=== PATIENT | female | born 1980 | race Caucasian/White ===

== ENCOUNTER 2017-03-08 10:18 | Emergency (ER) | payer OTHER, SELFPAY ==
[2017-03-08 10:45] VITALS: BP 151/103; PULSE 76; RESP 18; O2SAT 94; BMI 34.0
[2017-03-08 11:11] LABS: Microscopic, Urine URINE MICROSCOPIC (MICROSCOPIC)
[2017-03-08 11:13] LABS: Appearance,Urine CLEAR (Clear); Bilirubin,Urine Negative (Negative); Blood, Urine 1+ (Negative); Color,Urine YELLOW (Yellow); Glucose,Urine (UA) Negative (Negative); Ketones,Urine Negative (Negative); Leukocyte Esterase,Urine Negative (Negative); Nitrate,Urine Negative (Negative); Protein,Urine Negative (Negative); Specific Gravity, Urine <= 1.005 (1.005-1.030); Urobilinogen,Urine 0.2 EU/dl (0.2)
[2017-03-08 11:26] LABS: Urine Pregnancy, HCG Qual. Negative (Negative)
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
[2017-03-08 11:40] LABS: Bacteria,Urine Trace /lpf
[2017-03-08 11:59] VITALS: BP 133/82; PULSE 76; RESP 14; O2SAT 97
[2017-03-08 12:37] VITALS: BP 124/83; PULSE 71; RESP 16; O2SAT 97
[2017-03-08 13:10] VITALS: BP 129/83; PULSE 65; O2SAT 96
== END 2017-03-08 13:12 | disposition home or self-care (01) ==
PROVIDERS: Emergency Provider Emergency Medicine; PCP Family Medicine
DX: S16.1XXA Strain of muscle, fascia and tendon at neck level, initial encounter (principal); S29.019A Strain of muscle and tendon of unspecified wall of thorax, initial encounter; S39.012A Strain of muscle, fascia and tendon of lower back, initial encounter; V43.52XA Car driver injured in collision with other type car in traffic accident, initial encounter; Y92.410 Unspecified street and highway as the place of occurrence of the external cause; F17.210 Nicotine dependence, cigarettes, uncomplicated; J44.9 Chronic obstructive pulmonary disease, unspecified; F41.9 Anxiety disorder, unspecified
CPT/HCPCS: 72040; 72070; 72100; 81001; 81025; 96372; 99283

== ENCOUNTER 2018-02-10 17:25 | Observation (INO) ==
--- NOTE | 2018-02-10 17:52 | Emergency Department Note ---
ED Disposition Clinical Impression: Migraine Condition on Discharge: Fair Referrals: Provider,Referral, [Primary Care Provider] - - Critical Care Critical Care Time: No Attestation: On 02/10/18, the high probability of a clinically significant, sudden or life threatening deterioration of the following system(s) required my full and direct attention, intervention and personal management. The time I documented below is in addition to time spent performing reported procedures but includes the following listed in this critical care notation. Medical Decision Making - Nadeem Inquiry Pt receiving controlled substance: No Nadeem was queried for this patient: No Vital Signs: 02/10/18 17:26 Temperature 99.0 F Temperature Source Oral Pulse Rate [Right Brachial] 77 Respiratory Rate 24 Blood Pressure [Right Arm] 150/98 H Blood Pressure Mean [Right Arm] 115 Blood Pressure Source [Right Arm] Automatic Cuff Blood Pressure Position [Right Arm] Sitting 02 Sat by Pulse Oximetry 92 L Oxygen Delivery Method Room Air Orders (Tests/Meds): ORDERS Category Date Time Status XR chest 2V Stat Exams 02/10/18 17:30 Ordered B-Type Natriuretic Peptide Stat Lab 02/10/18 17:30 Ordered Basic Metabolic Panel Stat Lab 02/10/18 17:30 Ordered Complete Blood Count Auto Diff Stat Lab 02/10/18 17:30 Ordered D-Dimer Stat Lab 02/10/18 17:30 Ordered Lactic Acid Stat Lab 02/10/18 17:30 Ordered Troponin I Stat Lab 02/10/18 17:30 Ordered Blood Culture Stat Micro 02/10/18 17:30 Ordered Headache HPI - General Chief Complaint: Chest Pain Stated Complaint: chest pain,diff swallowing Time Seen by Provider: 02/10/18 17:45 Mode of Arrival: Ambulatory Limitations: No Limitations Description of Symptoms (Recalled from ER Triage Doc. by RN): chest pain/indigestion that began while at work last night; states she has difficulty swallowing as well. recently had gb removed; no other history of gi issues. copd positive. wheezing noted bilaterally. prod cough. - History of Present Illness HPI Narrative: 37 years old white female with history of migraine and meningitis. Her last meningitis episode was in 2009. 3 AM this morning she developed bilateral frontal throbbing pain that is worse with changing position from laying to sitting and sitting to standing. She complains of mild cervical stiffness with no rigidity no fever no chills no nausea no vomiting. He denies having photophobia or phonophobia. Denies having chest pain or palpitation or shortness of breath.. Complaint: headache Onset (ago): hour(s) Time: 03:00 Onset description: sudden Location: frontal Severity: moderate Severity scale (1-10): 8 Quality: throbbing Relieving factors: rest Context: occurred at rest Associated symptoms: neck stiffness - Related Data Home Medications Medication Instructions Recorded Confirmed Albuterol Sulfate [Albuterol HFA 108 mg PO QID 03/08/17 11/01/17 Inhaler] Budesonide/Formoterol Fumarate 1 inh PO DAILY 03/08/17 11/01/17 [Symbicort 160-4.5 Mcg Inhaler] Escitalopram Oxalate 5 mg PO DAILY 03/08/17 11/01/17 Ipratropium/Albuterol Sulfate 3 ml INHALATION QID 03/08/17 11/01/17 [Albut-Ipratropium 2.5mg-0.5mg/3 ml] Previous Rx's Medication Instructions Recorded Cyclobenzaprine HCl [Flexeril 10mg 10 mg PO TIDP PRN #10 tab 03/08/17 tablet] Ibuprofen [Ibuprofen 800mg Tab] 800 mg PO Q8HP PRN #15 tab 03/08/17 Allergies Allergy/AdvReac Type Severity Reaction Status Date / Time tramadol [TRAMADOL] Allergy Intermediate WELPS Verified 03/08/17 10:53 [facility] History - Hepatitis A Screen Drug use history?: No High risk sexual behaviors?: No History of sexually transmitted infection?: No Currently employed?: No Childcare worker?: No Do you have indoor plumbing?: Yes Do you have electricity?: Yes Attestation statement:: This patient has been screened for Hepatitis A risk factors. I have reviewed the patient's past medical history: Yes Medical History: Reports:: Cancer (LUNG) Denies:: MRSA Amputation: No Fractures: No - Social History Educational Level: Completed High School Smoking Status: Current every day smoker Tobacco Type: cigarettes Alcohol Intake: never - Psychiatric History Expresses thoughts of harming self/others: None Suicide Plan Description: No Plan ROS Obtained: Yes All systems reviewed & no additional complaints Physical Exam - General General appearance: alert, in no apparent distress - Head Head exam: atraumatic, normocephalic, normal inspection - Eye Eye exam: Present: normal appearance, PERRL, EOMI. Absent: scleral icterus, nystagmus - ENT ENT exam: Present: normal exam, normal oropharynx, mucous membranes moist, TM's normal bilaterally, normal external ear exam - Neck Neck exam: Present: normal inspection, full ROM, trachea midline, other (No limitation of range of motion no stiffness or rigidity.). Absent: tenderness, meningismus, lymphadenopathy - Chest Chest inspection: Present: normal inspection, symmetric chest wall rise. Absent: tenderness - Respiratory Respiratory exam: Present: normal lung sounds bilaterally. Absent: respiratory distress - Cardiovascular Cardiovascular exam: Present: regular rate, normal rhythm, normal heart sounds. Absent: JVD - Abdominal Exam Abdominal exam: Present: soft, normal bowel sounds. Absent: distention, tenderness, guarding, rebound, rigidity - External exam: Present: normal external exam - Extremities Exam Extremities exam: Present: normal inspection, full ROM, normal capillary refill. Absent: tenderness, pedal edema, calf tenderness - Back Exam Back exam: Present: normal inspection. Absent: tenderness, CVA tenderness (R), CVA tenderness (L), paraspinal tenderness, vertebral tenderness - Neurological Exam Neurological exam: Present: alert, oriented X3, CN II-XII intact, motor sensory deficit - Psychiatric Psychiatric exam: Present: normal affect, normal mood - Skin Skin exam: Present: warm, dry, intact, normal color - Lymphatic Lymphatic Findings: no adenopathy
[2018-02-10 17:57] LABS: Basophils # 0.1 K/mm3 (0-0.2); Basophils % 0.4 % (0.1-2.0); Eosinophils # 0.1 K/mm3 (0.0-0.4); Eosinophils % 0.6 % (0.1-12.0); Hematocrit 51.7 % (37.0-47.0); Hemoglobin 17.3 g/dL (12.2-16.2); Lymphocytes # 2.8 K/mm3 (0.7-4.5); Lymphocytes % 20.6 % (10-50); Mean Corpuscular HGB Conc 33.5 g/dL (31.8-35.4); Mean Corpuscular Hemoglobin 32.2 pg (27.0-31.2); Mean Platelet Volume 7.8 fl (7.4-10.4); Monocytes # 0.9 K/mm3 (0.1-1.0); Monocytes % 6.9 % (1.7-9.3); Neutrophils # 9.7 K/mm3 (1.8-7.8); Neutrophils % 71.4 % (37.0-80.0); Platelet Count 331 K/mm3 (142-424); Red Blood Count 5.38 M/mm3 (4.20-5.40); Red Cell Distribution Width 12.4 % (11.5-17.5); White Blood Count 13.6 K/mm3 (4.8-10.8)
--- NOTE | 2018-02-10 18:02 | Emergency Department Note ---
ED Disposition Clinical Impression: Dysphagia, COPD exacerbation, Diverticulosis, Hypokalemia, Leucocytosis, Pneumonitis, Adrenal adenoma, Fatty liver Clinical Impression: (Ruled Out): Migraine Disposition: Still a Patient Condition on Discharge: Fair Referrals: Provider,Referral, [Referring] - - Critical Care Critical Care Time: No Attestation: On 02/10/18, the high probability of a clinically significant, sudden or life threatening deterioration of the following system(s) required my full and direct attention, intervention and personal management. The time I documented below is in addition to time spent performing reported procedures but includes the following listed in this critical care notation. Medical Decision Making - Nadeem Inquiry Pt receiving controlled substance: No Nadeem was queried for this patient: No Vital Signs: 02/10/18 17:26 02/10/18 17:45 02/10/18 17:55 Temperature 99.0 F Temperature Source Oral Pulse Rate 94 H 88 Pulse Rate [Right Brachial] 77 Respiratory Rate 24 Blood Pressure [Right Arm] 150/98 H Blood Pressure Mean [Right Arm] 115 Blood Pressure Source [Right Arm] Automatic Cuff Blood Pressure Position [Right Arm] Sitting 02 Sat by Pulse Oximetry 92 L Oxygen Delivery Method Room Air - Lab Data Lab Results 02/10/18 17:37: WBC 13.6 H, RBC 5.38, Hgb 17.3 H, Hct 51.7 H, MCV 96.0, MCH 32.2 H, MCHC 33.5, RDW 12.4, Plt Count 331, MPV 7.8, Neut % (Auto) 71.4, Lymph % (Auto) 20.6, [place] % (Auto) 6.9, Eos % (Auto) 0.6, Baso % (Auto) 0.4, Neut # (Auto) 9.7 H, Lymph # (Auto) 2.8, [place] # (Auto) 0.9, Eos # (Auto) 0.1, Baso # (Auto) 0.1 02/10/18 17:37: D-Dimer 159 02/10/18 17:37: Sodium 138, Potassium 3.1 L, Chloride 99, Carbon Dioxide 27, Anion Gap 15.1 H, BUN 8, Creatinine 0.70, Estimated Creat Clear 143, Estimated GFR 93, Est GFR ( Amer) 113, Glucose 113 H, Calcium 8.6, Troponin I < 0 .02 02/10/18 17:37: Lactate 0.7 02/10/18 17:37: B-Natriuretic Peptide 42 02/10/18 17:37: Serum HCG, Qual Negative Result diagrams: 02/10/18 17:37 02/10/18 17:37 Orders (Tests/Meds): ED MEDICATIONS Generic Name Dose Route Start Last Admin Trade Name Gopal PRN Reason Stop Dose Admin Albuterol/Ipratropium 3 ml 02/10/18 18:00 Duoneb 3ml Neb IH 03/12/18 17:59 Q1H LEELEE Sodium Chloride 1,000 mls @ 999 mls/hr 02/10/18 18:00 Sod Chlor 0.9% 1000ml Bag IV 02/10/18 19:00 .Q1H1M LEELEE Pantoprazole Sodium 80 mg/ 100 mls @ 10 mls/hr 02/10/18 18:30 Sodium Chloride IV 02/13/18 18:29 .Q10H LEELEE Pantoprazole Sodium 40 mg 02/10/18 21:00 Protonix 40mg Vial IV 03/12/18 20:59 HS LEELEE Discontinued Medications Generic Name Dose Route Start Last Admin Trade Name Paulq PRN Reason Stop Dose Admin Albuterol/Ipratropium 3 ml 02/10/18 17:52 02/10/18 17:45 Duoneb 3ml Neb IH 02/10/18 17:53 3 ml ONCE ONE Administration Diatrizoate Meglum/Diatrizoate Sod 30 ml 02/10/18 17:56 02/10/18 19:01 Gastrografin 66%-10% 30ml PO 02/10/18 17:57 30 ml ONCE ONE Administration Famotidine 20 mg 02/10/18 17:56 02/10/18 19:02 Pepcid 20mg/2ml Vial IV 02/10/18 17:57 20 mg ONCE ONE Administration Methylprednisolone Sodium Succinate 125 mg 02/10/18 17:56 02/10/18 19:02 Solu-Medrol 125mg/2ml Vial IV 02/10/18 17:57 125 mg ONCE ONE Administration ORDERS Category Date Time Status CT abdomen pelvis wo con Stat Cat Scan 02/10/18 17:56 Taken XR chest 2V Stat Exams 02/10/18 17:30 Taken Blood Culture Stat Micro 02/10/18 17:37 Received - CT Data CT Scan: Abdomen, Pelvis Time Received: 19:[address] Reviewed: Yes: I have viewed the radiologist's interpretation Preliminary Findings: Abnormal Findings Narrative: Fatty infiltration right adrenal adenoma diverticulosis and patchy airspace disease Medical Decision Narrative: CT scan was positive for fatty liver diverticulosis patchy airspace disease and adrenal adenoma. Patient could not tolerate p.o. intake including p.o. contrast for CT scan. I discussed her clinical scenario with Dr. Barney who agreed to admit her for IV fluids potassium replacement and IV Protonix. Also she will keep on giving steroids IV antibiotics and duo nebs. He will need a surgical consultation. General Adult HPI - General Chief complaint: Chest Pain Stated complaint: chest pain,diff swallowing Time Seen by Provider: 02/10/18 17:45 Mode of Arrival: Ambulatory Limitations: No Limitations Description of Symptoms (Recalled from ER Triage Doc. by RN): chest pain/indigestion that began while at work last night; states she has difficulty swallowing as well. recently had gb removed; no other history of gi issues. copd positive. wheezing noted bilaterally. prod cough. - History of Present Illness HPI narrative: [age] years old white female who developed sudden onset of dysphagia to solids and liquids with vomiting no hematemesis no coffee-ground emesis no melanotic stool or bleeding per rectum. She has chronic wheezing, she complains of epigastric burning sensation. Onset (ago): hour(s) Radiation: non-radiation Severity scale (1-10): 8 - Related Data Home Medications Medication Instructions Recorded Confirmed Albuterol Sulfate [Albuterol HFA 108 mg PO QID 03/08/17 11/01/17 Inhaler] Budesonide/Formoterol Fumarate 1 inh PO DAILY 03/08/17 11/01/17 [Symbicort 160-4.5 Mcg Inhaler] Escitalopram Oxalate 5 mg PO DAILY 03/08/17 11/01/17 Ipratropium/Albuterol Sulfate 3 ml INHALATION QID 03/08/17 11/01/17 [Albut-Ipratropium 2.5mg-0.5mg/3 ml] Previous Rx's Medication Instructions Recorded Cyclobenzaprine HCl [Flexeril 10mg 10 mg PO TIDP PRN #10 tab 03/08/17 tablet] Ibuprofen [Ibuprofen 800mg Tab] 800 mg PO Q8HP PRN #15 tab 03/08/17 Allergies Allergy/AdvReac Type Severity Reaction Status Date / Time tramadol [TRAMADOL] Allergy Intermediate WELPS Verified 03/08/17 10:53 [facility] History - Hepatitis A Screen Drug use history?: No High risk sexual behaviors?: No History of sexually transmitted infection?: No Currently employed?: No Childcare worker?: No Do you have indoor plumbing?: Yes Do you have electricity?: Yes Attestation statement:: This patient has been screened for Hepatitis A risk factors. I have reviewed the patient's past medical history: Yes Medical History: Reports:: Cancer (LUNG) Denies:: MRSA Amputation: No Fractures: No - Social History Educational Level: Completed High School Smoking Status: Current every day smoker Tobacco Type: cigarettes Alcohol Intake: never - Psychiatric History Expresses thoughts of harming self/others: None Suicide Plan Description: No Plan ROS Obtained: Yes All systems reviewed & no additional complaints Physical Exam - General General appearance: alert, in no apparent distress - Head Head exam: atraumatic, normocephalic, normal inspection - Eye Eye exam: Present: normal appearance, PERRL, EOMI. Absent: scleral icterus, nystagmus - ENT ENT exam: Present: normal exam, normal oropharynx, mucous membranes moist, TM's normal bilaterally, normal external ear exam - Neck Neck exam: Present: normal inspection, full ROM, trachea midline. Absent: tenderness, meningismus, lymphadenopathy - Chest Chest inspection: Present: normal inspection, symmetric chest wall rise. Absent: tenderness - Respiratory Respiratory exam: Present: normal lung sounds bilaterally, wheezes. Absent: respiratory distress - Cardiovascular Cardiovascular exam: Present: regular rate, normal rhythm, normal heart sounds. Absent: JVD - Abdominal Exam Abdominal exam: Present: soft, tenderness, normal bowel sounds. Absent: distention, guarding, rebound, rigidity, Sewell's sign, tenderness at [place]'s Point Abdominal tenderness: Present: epigastrium - External exam: Present: normal external exam - Extremities Exam Extremities exam: Present: normal inspection, full ROM, normal capillary refill. Absent: calf tenderness - Back Exam Back exam: Present: normal inspection. Absent: tenderness, CVA tenderness (R), CVA tenderness (L) - Neurological Exam Neurological exam: Present: alert, oriented X3, CN II-XII intact, motor sensory deficit, reflexes normal - Psychiatric Psychiatric exam: Present: normal affect, normal mood - Skin Skin exam: Present: warm, dry, intact, normal color - Lymphatic Lymphatic Findings: no adenopathy
[2018-02-10 18:09] LABS: Anion Gap 15.1 mEq/L (5-15); Blood Urea Nitrogen 8 mg/dL (7-18); Calcium 8.6 mg/dL (8.5-10.1); Carbon Dioxide 27 mmol/L (21.0-32.0); Chloride 99 mmol/L (98-107); Glucose 113 mg/dL (74-106); Sodium 138 mmol/L (136-145)
[2018-02-10 18:12] LABS: Potassium 3.1 mmoL/L (3.5-5.1)
[2018-02-11 06:19] LABS: Basophils % 0.1 % (0.1-2.0); Eosinophils % 0.1 % (0.1-12.0); Hematocrit 47.1 % (37.0-47.0); Lymphocytes # 1.1 K/mm3 (0.7-4.5); Lymphocytes % 13.1 % (10-50); Mean Corpuscular Hemoglobin 31.9 pg (27.0-31.2); Mean Corpuscular Volume 96.9 fl (81-99); Mean Platelet Volume 7.7 fl (7.4-10.4); Monocytes # 0.3 K/mm3 (0.1-1.0); Monocytes % 4.1 % (1.7-9.3); Neutrophils # 6.8 K/mm3 (1.8-7.8); Neutrophils % 82.7 % (37.0-80.0); Platelet Count 325 K/mm3 (142-424); Red Blood Count 4.86 M/mm3 (4.20-5.40); Red Cell Distribution Width 12.5 % (11.5-17.5); White Blood Count 8.3 K/mm3 (4.8-10.8)
[2018-02-11 06:24] LABS: Hemoglobin 15.5 g/dL (12.2-16.2)
[2018-02-11 06:29] LABS: Anion Gap 14.4 mEq/L (5-15); Calcium 7.8 mg/dL (8.5-10.1); Potassium 3.4 mmoL/L (3.5-5.1)
[2018-02-11 06:31] LABS: Phosphorous 3.3 mg/dL (2.4-4.9)
--- NOTE | 2018-02-11 12:03 | H&P/Discharge Summary ---
General - General Admission date:: 02/10/18 Discharge date: 02/11/18 *Admission Date: 02/10/18 *Chief complaint: heart burn and dysphagia *History of present illness: Ms. Jennings is a 37-year-old female with medical history of obesity, COPD, recent status post cholecystectomy who presents with 2-3 days of worsening baseline heartburn to the point that anything she eats or drinks hurts and she is having regular vomiting due to the discomfort. She reports food as well as intermittent bilious emesis due to stomach being "empty". She reports questionable scant coffee-ground emesis however has remained hemodynamically stable and had normal labs. Has remained hydrated with normal urine output. Stools have been looser but not mitch diarrhea. Patient's biggest complaint is her horrible heartburn and inability to eat. She also reports some worsening shortness of breath and cough that has become more productive over the past few days. She quit smoking about 30 days ago. Supposed use inhalers at home howeve r she is out. Of note she also has follow-up with her primary care doctor already scheduled for tomorrow. Patient admitted to medicine for further assessment. Has had no further episodes of emesis or coffee grounds. Tolerating sips and chips. [facility] History I have reviewed the patient's past medical history: Yes Medical History: Reports:: Diabetes Mellitus Type 2 Denies:: Cancer, Diabetes Mellitus Type 1, MRSA Other Surgeries: Yes: Cholecystectomy Amputation: No Fractures: No - *Social History Educational Level: Attended College Smoking Status: Former smoker Tobacco Type: cigarettes #Yrs smoked (if former smoker): 30 Smoking End Date: 32 days ago Alcohol Intake: former Occupational Status: disabled Housing: apartment Household Members: other - Psychiatric History Expresses thoughts of harming self/others: None Suicide Plan Description: No Plan *Family Hx:: Cancer, Coronary Artery Disease Review of Systems - Review of Systems Review of systems:: pertinent systems reviewed and negative unless documented below Exam Vital signs and Labs for Last 24 Hours: Temp Pulse Resp BP Pulse Ox 98.9 F 98 H 20 137/79 92 L 02/11/18 08:00 02/11/18 08:00 02/11/18 08:00 02/11/18 08:00 02/11/18 09:01 Laboratory Results - last 24 hr 02/10/18 17:37: WBC 13.6 H, RBC 5.38, Hgb 17.3 H, Hct 51.7 H, MCV 96.0, MCH 32.2 H, MCHC 33.5, RDW 12.4, Plt Count 331, MPV 7.8, Neut % (Auto) 71.4, Lymph % (Auto) 20.6, [place] % (Auto) 6.9, Eos % (Auto) 0.6, Baso % (Auto) 0.4, Neut # (Auto) 9.7 H, Lymph # (Auto) 2.8, [place] # (Auto) 0.9, Eos # (Auto) 0.1, Baso # (Auto) 0.1 02/10/18 17:37: D-Dimer 159 02/10/18 17:37: Sodium 138, Potassium 3.1 L, Chloride 99, Carbon Dioxide 27, Anion Gap 15.1 H, BUN 8, Creatinine 0.70, Estimated Creat Clear 143, Estimated GFR 93, Est GFR ( Amer) 113, Glucose 113 H, Calcium 8.6, Troponin I < 0.02 02/10/18 17:37: Lactate 0.7 02/10/18 17:37: B-Natriuretic Peptide 42 02/10/18 17:37: Serum HCG, Qual Negative 02/11/18 05:55: WBC 8.3 D, RBC 4.86, Hgb 15.5 D, Hct 47.1 H, MCV 96.9, MCH 31.9 H, MCHC 33.0, RDW 12.5, Plt Count 325, MPV 7.7, Neut % (Auto) 82.7 H, Lymph % (Auto) 13.1, [place] % (Auto) 4.1, Eos % (Auto) 0.1, Baso % (Auto) 0.1, Neut # (Auto) 6.8, Lymph # (Auto) 1.1, [place] # (Auto) 0.3, Eos # (Auto) 0.0, Baso # (Auto) 0.0 02/11/18 05:55: Sodium 142, Potassium 3.4 L, Chloride 106, Carbon Dioxide 25, Anion Gap 14.4, BUN 5 L D, Creatinine 0.71, Estimated Creat Clear 155, Estimated GFR 92, Est GFR ( Amer) 111, Glucose 151 H D, Calcium 7.8 L 02/11/18 05:55: Phosphorus 3.3, Magnesium 1.9 I & O for Last 24 hours: Intake & Output 02/08/18 02/09/18 02/10/18 02/11/18 23:59 23:59 23:59 23:59 Weight 90.35 kg 92.108 kg - Constitutional obese, agitated - *Routine HEENT Exam Head: Present: normocephalic, atraumatic Eye: Present: EOMI, PERRL ENT: Present: mucous membranes moist - *Routine Neck Exam Present: supple. Absent: JVD - *Routine Respiratory Exam Present: prolonged expiratory phase, wheezes. Absent: crackles Comments: Rhonchi that clear with cough, diffuse wheeze bilaterally - *Routine Cardiovascular Exam Present: RRR, Normal S1, Normal S2. Absent: murmur - *Routine Abdominal Exam Present: soft, normoactive bowel sounds, tenderness (Midepigastric tenderness) - *Routine Rectal Exam Patient deferred: visual exam - *Routine Exam Patient deferred: external exam - *Routine Extremities Exam Absent: cyanosis, clubbing, edema - *Routine Skin Exam Present: intact. Absent: cyanosis, erythema - *Routine Neurological Exam Present: alert, oriented X3. Absent: altered mental status - Routine Psychiatric Exam Present: anxious, agitated Comments: Patient very frustrated with situation and miscommunication. Wanting to go home. Hospital Course Hospital Course: Admitted to medicine for further management. No further episodes of emesis or coffee grounds. No melanotic stools. Tolerating sips and chips. Tried GI cocktail the morning after admission with improvement in heartburn. Tolerated full liquid diet for lunch. Plan to discharge home with inhalers, antibiotics, steroids for COPD exacerbation and regimen of omeprazole and ranitidine for GERD. Close follow-up tomorrow with PCP to discuss further management. Defered EGD at this time pending trial of PPI and H2 ciara. Review of labs as well with no concern for electrolyte abnormalities, starvation, risk for refeeding syndrome, or dehydration. Patient was extremely agitated and anxious during admission, improved with reassurance and clear treatment plan. Medically stable for discharge home with close follow-up tomorrow with PCP. Would benefit from considering treatment with anti-anxiety meds long-term Results Labs on day of discharge: Labs from last 24 hours 02/11/18 02/11/18 02/11/18 05:55 05:55 05:55 WBC 8.3 D RBC 4.86 Hgb 15.5 D Hct 47.1 H MCV 96.9 MCH 31.9 H MCHC 33.0 RDW 12.5 Plt Count 325 MPV 7.7 Neut % (Auto) 82.7 H Lymph % (Auto) 13.1 [place] % (Auto) 4.1 Eos % (Auto) 0.1 Baso % (Auto) 0.1 Neut # (Auto) 6.8 Lymph # (Auto) 1.1 [place] # (Auto) 0.3 Eos # (Auto) 0.0 Baso # (Auto) 0.0 D-Dimer Sodium 142 Potassium 3.4 L Chloride 106 Carbon Dioxide 25 Anion Gap 14.4 BUN 5 L D Creatinine 0.71 Estimated Creat Clear 155 Estimated GFR 92 Est GFR ( Amer) 111 Glucose 151 H D Lactate Calcium 7.8 L Phosphorus 3.3 Magnesium 1.9 Troponin I B-Natriuretic Peptide Serum HCG, Qual 02/10/18 02/10/18 02/10/18 17:37 17:37 17:37 WBC RBC Hgb Hct MCV MCH MCHC RDW Plt Count MPV Neut % (Auto) Lymph % (Auto) [place] % (Auto) Eos % (Auto) Baso % (Auto) Neut # (Auto) Lymph # (Auto) [place] # (Auto) Eos # (Auto) Baso # (Auto) D-Dimer Sodium Potassium Chloride Carbon Dioxide Anion Gap BUN Creatinine Estimated Creat Clear Estimated GFR Est GFR ( Amer) Glucose Lactate 0.7 Calcium Phosphorus Magnesium Troponin I B-Natriuretic Peptide 42 Serum HCG, Qual Negative 02/10/18 02/10/18 02/10/18 17:37 17:37 17:37 WBC 13.6 H RBC 5.38 Hgb 17.3 H Hct 51.7 H MCV 96.0 MCH 32.2 H MCHC 33.5 RDW 12.4 Plt Count 331 MPV 7.8 Neut % (Auto) 71.4 Lymph % (Auto) 20.6 [place] % (Auto) 6.9 Eos % (Auto) 0.6 Baso % (Auto) 0.4 Neut # (Auto) 9.7 H Lymph # (Auto) 2.8 [place] # (Auto) 0.9 Eos # (Auto) 0.1 Baso # (Auto) 0.1 D-Dimer 159 Sodium 138 Potassium 3.1 L Chloride 99 Carbon Dioxide 27 Anion Gap 15.1 H BUN 8 Creatinine 0.70 Estimated Creat Clear 143 Estimated GFR 93 Est GFR ( Amer) 113 Glucose 113 H Lactate Calcium 8.6 Phosphorus Magnesium Troponin I < 0.02 B-Natriuretic Peptide Serum HCG, Qual DS: Diagnosis - Discharge Diagnosis (1) GERD (gastroesophageal reflux disease) Status: Acute Problem details: Initiate omeprazole and ranitidine. Dose of GI cocktail during admission. Assess in outpatient setting response and consider EGD if still having symptoms (2) COPD exacerbation Status: Acute Problem details: Plan for 5-day course of steroids and antibiotics. Re-prescribed inhalers for use at home. Nebs while inpatient. (3) Dysphagia Status: Acute Problem details: Improved with treatment of GERD. Tolerating full liquid diet (4) Gastroenteritis Status: Acute Problem details: Resolving Discharge Medications - Medications for Discharge Home Medication List at Discharge: Continue Albuterol Sulfate [Albuterol HFA Inhaler] 108 mg PO Q6HP PRN 30 Days #1 [email or web address] PRN Reason: Wheezing Budesonide/Formoterol Fumarate [Symbicort 160-4.5 Mcg Inhaler] 1 inh PO DAILY 30 Days #1 [email or web address] Discontinued Ipratropium/Albuterol Sulfate [Albut-Ipratropium 2.5mg-0.5mg/3 ml] 3 ml INHALATION QID Disposition Disposition: Home, Self-Care
== END 2018-02-11 13:51 | disposition home or self-care (01) ==
LOC: ER 17:25 → 2ND 17:25
PROVIDERS: ADMIT Internal Medicine Adolescent Medicine; ATTEND Internal Medicine Adolescent Medicine
DX: J44.1 Chronic obstructive pulmonary disease with (acute) exacerbation; E87.6 Hypokalemia; D35.00 Benign neoplasm of unspecified adrenal gland; R13.10 Dysphagia, unspecified; J18.9 Pneumonia, unspecified organism; K52.9 Noninfective gastroenteritis and colitis, unspecified; K21.9 Gastro-esophageal reflux disease without esophagitis; K76.0 Fatty (change of) liver, not elsewhere classified; K57.30 Diverticulosis of large intestine without perforation or abscess without bleeding; D72.829 Elevated white blood cell count, unspecified
CPT/HCPCS: 36415; 71020; 71046; 74176; 80048; 83605; 83735; 83880; 84100; 84484; 84703; 85025; 85378; 87040; 87205; 93005; 94640; 96365; 96367; 96375; 99284; G0378; J0456; J2405